=== PATIENT | male | born 1950 | race Caucasian/White ===

== ENCOUNTER → 2017-03-20 | Day surgery (SDC) | payer MEDICARE, OTHER ==
[~2017-03-20] VITALS: Ht 167.6 cm; Wt 74.4 kg
[~2017-03-20] MED LIST: ATENOLOL25 MG PO; HYDROCODONE-APA1 TAB PO; LASIX20 MG PO; NORVASC5 MG PO; PAXIL20 MG PO; PRAVACHOL20 MG PO; THEOPHYLLINE400 MG PO; TRAZODONE 50MG50 MG PO; VITAMIN D1000 UNI1 PO; ZANTAC150 MG PO
[2017-03-20 11:29] LABS: HCT 47.1 % (42.0-52.0); HGB 15.8 g/dl (13.2-18.0); MCH 29.8 pg (25.0-31.0); MCHC 33.5 g/dL (32.0-36.0); MCV 88.9 fL (78.0-100.0); MPV 10.3 fL (6.0-9.5); RBC 5.3 M/uL (4.70-6.00); RDW 14.2 % (11.5-14.0); WBC 7.3 K/uL (4.0-10.5)
[2017-03-20 11:37] LABS: ALBUMIN 4.7 g/dL (3.4-4.8); BILIRUBIN - TOTAL 0.5 mg/dL (0.1-1.0); CREATININE 0.9 mg/dL (0.7-1.2); GLOBULIN (CALCULATION) 3.2 g/dL (2.2-4.2); POTASSIUM 4.3 mmol/L (3.5-5.1); TOTAL PROTEIN 7.9 g/dL (6.4-8.3)
== END | disposition home or self-care (01) ==
LOC: FAS 10:00
PROVIDERS: Surgery
DX: D12.3 Benign neoplasm of transverse colon (principal); K21.9 Gastro-esophageal reflux disease without esophagitis; I10 Essential (primary) hypertension; I25.10 Atherosclerotic heart disease of native coronary artery without angina pectoris; I65.29 Occlusion and stenosis of unspecified carotid artery; M19.90 Unspecified osteoarthritis, unspecified site; E78.00 Pure hypercholesterolemia, unspecified; E78.5 Hyperlipidemia, unspecified; J44.9 Chronic obstructive pulmonary disease, unspecified; F41.9 Anxiety disorder, unspecified; F17.210 Nicotine dependence, cigarettes, uncomplicated; F32.9 Major depressive disorder, single episode, unspecified; Z91.041 Radiographic dye allergy status; Z88.0 Allergy status to penicillin; Z90.49 Acquired absence of other specified parts of digestive tract; Z95.1 Presence of aortocoronary bypass graft; Z95.2 Presence of prosthetic heart valve; Z83.42 Family history of familial hypercholesterolemia; Z82.49 Family history of ischemic heart disease and other diseases of the circulatory system; Z83.3 Family history of diabetes mellitus; Z79.82 Long term (current) use of aspirin; Z79.899 Other long term (current) drug therapy; Z98.890 Other specified postprocedural states
CPT/HCPCS: 36415; 80053; 88305; J2704

== ENCOUNTER → 2021-03-05 | Day surgery (SDC) | payer OTHER ==
[~2021-03-05] MED LIST changes: +ASPIRIN EC81 MG PO; +CRESTOR10 MG PO; +CYCLOBENZAPRINE10 MG PO; +IBUPROFEN800 MG PO; +MEDROL 4MG DOSEP4 MG PO; +ZOLOFT50 MG PO
[2021-03-05 10:02] LABS: HCT 48.1 % (42.0-52.0); HGB 16.1 g/dl (13.2-18.0); MCH 29.8 pg (25.0-31.0); MCHC 33.5 g/dL (32.0-36.0); MCV 88.9 fL (78.0-100.0); MPV 10.5 fL (6.0-9.5); RBC 5.41 M/uL (4.70-6.00); WBC 15.2 K/uL (4.0-10.5)
[2021-03-05 10:18] LABS: ALBUMIN 4.1 g/dL (3.4-5.0); BILIRUBIN - TOTAL 0.3 mg/dL (0.2-1.0); BUN/CREAT RATIO (CALC) 22.7 RATIO; CREATININE 0.66 mg/dL (0.67-1.17); GLOBULIN (CALCULATION) 3.8 g/dL; POTASSIUM 4.7 mmol/L (3.5-5.1); TOTAL PROTEIN 7.9 g/dL (6.4-8.2)
== END | disposition home or self-care (01) ==
LOC: FAS 09:24
PROVIDERS: Surgery
DX: Z12.11 Encounter for screening for malignant neoplasm of colon (principal); D12.6 Benign neoplasm of colon, unspecified; K21.9 Gastro-esophageal reflux disease without esophagitis; E78.00 Pure hypercholesterolemia, unspecified; J44.9 Chronic obstructive pulmonary disease, unspecified; M19.90 Unspecified osteoarthritis, unspecified site; G47.30 Sleep apnea, unspecified; I25.10 Atherosclerotic heart disease of native coronary artery without angina pectoris; I10 Essential (primary) hypertension; I25.2 Old myocardial infarction; F17.210 Nicotine dependence, cigarettes, uncomplicated; Z20.822 Contact with and (suspected) exposure to COVID-19; Z90.49 Acquired absence of other specified parts of digestive tract; Z79.899 Other long term (current) drug therapy; Z95.1 Presence of aortocoronary bypass graft; Z88.0 Allergy status to penicillin; Z91.041 Radiographic dye allergy status; Z82.49 Family history of ischemic heart disease and other diseases of the circulatory system
CPT/HCPCS: 36415; 80053; 88305; J2704; J7120

== ENCOUNTER 2021-03-15 12:29 | Emergency (ER) | payer OTHER ==
[~2021-03-15 12:29] MED LIST changes: -CYCLOBENZAPRINE10 MG PO
[2021-03-15] MEDS ORDERED: MEDROL 4MG DOSEP4 MG PO (14:48)
[2021-03-15] MEDS ORDERED: CYCLOBENZAPRINE10 MG PO (14:48)
== END 2021-03-15 15:08 | disposition home health service (06) ==
LOC: FER 12:29
DX: M54.42 Lumbago with sciatica, left side (principal); I51.9 Heart disease, unspecified; Z79.82 Long term (current) use of aspirin; Z88.0 Allergy status to penicillin
CPT/HCPCS: 99283; J1100; J1885

== ENCOUNTER 2021-12-07 13:57 | Emergency (ER) | payer OTHER ==
[~2021-12-07 13:57] MED LIST changes: +CYCLOBENZAPRINE10 MG PO
[2021-12-07 15:03] LABS: BASOPHIL 0.4 % (0-2); EOSINOPHIL 0.4 % (0-7); HCT 44.5 % (42.0-52.0); LYMPHOCYTE 18.9 % (15-48); MCH 29.5 pg (25.0-31.0); MCHC 33.7 g/dL (32.0-36.0); MCV 87.6 fL (78.0-100.0); MONOCYTE 11.2 % (0-12); MPV 10.4 fL (6.0-9.5); NEUTROPHIL 68.9 % (41-80); NRBC 0; PLT 142 K/uL (150-400); RBC 5.08 M/uL (4.70-6.00); RDW 13.9 % (11.5-14.0); WBC 5.1 K/uL (4.0-10.5)
[2021-12-07 15:07] LABS: INR 0.98 (0.9-1.2); PROTHROMBIN TIME 12.4 SECONDS (11.8-13.4)
[2021-12-07 15:12] LABS: ALBUMIN 3.8 g/dL (3.4-5.0); ALKALINE PHOSHATASE 71 U/L (46-116); ALT 34 U/L (16-63); AST 31 U/L (15-37); BILIRUBIN - TOTAL 0.3 mg/dL (0.2-1.0); BUN 17 mg/dL (7-18); BUN/CREAT RATIO (CALC) 18.5 RATIO; CHLORIDE 96 mmol/L (98-107); CO2 (BICARBONATE) 26 mmol/L (21-32); CREATININE 0.92 mg/dL (0.67-1.17); GLOBULIN (CALCULATION) 3.4 g/dL; GLUCOSE 91 mg/dL (74-106); POTASSIUM 3.7 mmol/L (3.5-5.1); TOTAL PROTEIN 7.2 g/dL (6.4-8.2)
[2021-12-07 15:24] LABS: INFLUENZA A NAA NEGATIVE (NEGATIVE)
[2021-12-07 15:30] LABS: CORONAVIRUS 2019 SARS-COV-2 POSITIVE (NEGATIVE)
[2021-12-07 15:39] LABS: BILIRUBIN NEGATIVE (NEGATIVE); BLOOD NEGATIVE Ery/uL (NEGATIVE); CLARITY CLEAR (CLEAR); COLOR YELLOW (YELLOW); GLUCOSE (U) NORMAL (NORMAL); LEUKOCYTES NEGATIVE Leu/uL (NEGATIVE); NITRITE NEGATIVE (NEGATIVE); PROTEIN NEGATIVE (NEGATIVE); UROBILINOGEN 0.2 mg/dL (0.2-1.0)
[2021-12-07 15:44] LABS: ECSTASY (MDMA) NEGATIVE (NEGATIVE); MARIJUANA (THC) NEGATIVE (NEGATIVE); METHADONE NEGATIVE (NEGATIVE); OPIATES POSITIVE (NEGATIVE)
[2021-12-07 15:45] LABS: AMPHETAMINES NEGATIVE (NEGATIVE); BARBITURATES NEGATIVE (NEGATIVE); OXYCODONE NEGATIVE (NEGATIVE)
== END 2021-12-07 17:46 | disposition home or self-care (01) ==
LOC: FER 13:57
PROVIDERS: Emergency Medicine
DX: U07.1 COVID-19 (principal); E87.1 Hypo-osmolality and hyponatremia; R93.89 Abnormal findings on diagnostic imaging of other specified body structures; I10 Essential (primary) hypertension; J44.9 Chronic obstructive pulmonary disease, unspecified; F17.200 Nicotine dependence, unspecified, uncomplicated
CPT/HCPCS: 36415; 36600; 70450; 71250; 80053; 80305; 81003; 82803; 83880; 84145; 84484; 85025; 85610; 85730; 87040; 87088; 93005; G0480; J7040; U0002